=== PATIENT | female | born 1975 | race Caucasian/White ===

== ENCOUNTER → 2018-03-06 | Outpatient (CLI) | payer OTHER ==
[2018-03-06 08:01] LABS: BASOPHILS # (AUTO) 0.04 x10^3/uL (0-0.1); BASOPHILS % (AUTO) 1 % (0-1); EOSINOPHILS # (AUTO) 0.11 x10^3/uL (0-0.4); EOSINOPHILS % (AUTO) 2 % (1-7); LYMPHOCYTES # (AUTO) 1.24 x10^3/uL (1-3.4); LYMPHOCYTES % (AUTO) 23 % (22-44); MD NO; MEAN CORPUSCULAR HEMOGLOBIN 24.4 pg (27.0-34.8); MEAN CORPUSCULAR HGB CONC 31.9 g/dL (32.4-35.8); MEAN CORPUSCULAR VOLUME 76.3 fL (80-100); MEAN PLATELET VOLUME 9.8 fL (7.4-10.4); MONOCYTES # (AUTO) 0.39 x10^3/uL (0.2-0.8); MONOCYTES % (AUTO) 7 % (2-9); NEUTROPHILS # (AUTO) 3.53 x10^3/uL (1.8-6.8); NEUTROPHILS % (AUTO) 67 % (42-75); PLATELET COUNT 258 x10^3/uL (130-400); RED BLOOD COUNT 5.06 x10^6/uL (3.82-5.3); RED CELL DISTRIBUTION WIDTH 16.6 % (9.6-15.2)
[2018-03-06 08:11] LABS: ALBUMIN 3.5 g/dL (3.4-5.0); ANION GAP 5 mmol/L (5-15); CALCIUM 8.3 mg/dL (8.5-10.1); CHLORIDE 108 mmol/L (98-107)
[2018-03-06 08:24] LABS: ALANINE AMINOTRANSFERASE 25 U/L (12-78); ALKALINE PHOSPHATASE 78 U/L (45-117); BILIRUBIN,TOTAL 0.5 mg/dL (0.2-1.0); CHOLESTEROL, TOTAL 160 mg/dL (140-239); CREATININE 0.68 mg/dL (0.55-1.02); HDL CHOL % 34 % (28-40); HDL CHOLESTEROL (DIRECT) 54 mg/dL (40-60); LDL CHOLESTEROL,CALCULATED 87 mg/dL (54-169); LDL/HDL RATIO 1.6 (0.5-3.0); THYROID STIMULATING HORMONE 0.686 mIU/L (0.358-3.740); TOTAL PROTEIN 7.5 g/dL (6.4-8.2); TRIGLYCERIDES 96 mg/dL (50-200); VLDL CHOLESTEROL 19 mg/dL (0-25)
[2018-03-06 08:40] LABS: MICROSCOPIC INDICATED
== END | disposition home or self-care (01) ==
LOC: LAB 07:33
PROVIDERS: ATTEND Nurse Practitioner Family
DX: E03.9 Hypothyroidism, unspecified (principal); E66.01 Morbid (severe) obesity due to excess calories; F33.0 Major depressive disorder, recurrent, mild; G44.229 Chronic tension-type headache, not intractable; R41.3 Other amnesia; Z68.45 Body mass index [BMI] 70 or greater, adult; Z98.84 Bariatric surgery status
CPT/HCPCS: 36415; 80053; 80061; 81001; 84436; 84443; 84481; 85025

== ENCOUNTER → 2019-06-17 | Outpatient (CLI) | payer OTHER | END | disposition home or self-care (01) | LOC: CFH 14:16 | PROVIDERS: ATTEND Nurse Practitioner Family | DX: Z12.31 Encounter for screening mammogram for malignant neoplasm of breast (principal); N64.89 Other specified disorders of breast; M19.91 Primary osteoarthritis, unspecified site | CPT/HCPCS: 74176; 77063; 77067 ==

== ENCOUNTER 2019-09-03 08:14 | Outpatient (CLI) | payer OTHER ==
[~2019-09-03 08:14] MED LIST: LEVO150T5 PO; SUMA50TA3 PO; VENL75CA PO
[2019-09-03 08:57] LABS: INTERNATIONAL NORMALIZED RATIO 0.98 (0.93-1.1); PARTIAL THROMBOPLASTIN TIME 28 Seconds (25-31); PROTHROMBIN TIME 10.4 Seconds (9.6-11.5)
[2019-09-03 08:59] LABS: ALBUMIN 3.3 g/dL (3.4-5.0); ANION GAP 6 mmol/L (5-15); CALCIUM 8.7 mg/dL (8.5-10.1); CHLORIDE 111 mmol/L (98-107)
[2019-09-03 09:08] LABS: ALANINE AMINOTRANSFERASE 24 U/L (12-78); ALKALINE PHOSPHATASE 70 U/L (45-117); BILIRUBIN,TOTAL 0.3 mg/dL (0.2-1.0); CREATININE 0.69 mg/dL (0.55-1.02); FREE T4 (FREE THYROXINE) 1.22 ng/dL (0.76-1.46); T4 (THYROXINE) 11.2 mcg/dL (4.8-13.9); TOTAL PROTEIN 7.3 g/dL (6.4-8.2)
[2019-09-03 09:09] LABS: MEAN CORPUSCULAR HEMOGLOBIN 25.9 pg (27.0-34.8); MEAN CORPUSCULAR HGB CONC 32.2 g/dL (32.4-35.8); MEAN CORPUSCULAR VOLUME 80.4 fL (80-100); MEAN PLATELET VOLUME 9.9 fL (7.4-10.4); PLATELET COUNT 275 x10^3/uL (130-400); RED BLOOD COUNT 5.69 x10^6/uL (3.82-5.3); RED CELL DISTRIBUTION WIDTH 30.1 % (9.6-15.2)
[2019-09-03 09:53] LABS: PLATELET (PFA) 268 x10^3/uL (130-400)
[2019-09-03 10:12] LABS: ANISOCYTOSIS 1+; BASOPHILS # (AUTO) 0.06 x10^3/uL (0-0.1); BASOPHILS % (AUTO) 1 % (0-1); EOSINOPHILS # (AUTO) 0.16 x10^3/uL (0-0.4); EOSINOPHILS % (AUTO) 2 % (1-7); LYMPHOCYTES # (AUTO) 1.47 x10^3/uL (1-3.4); LYMPHOCYTES % (AUTO) 21 % (22-44); MD MORPH REVIEW ONLY; MICROCYTOSIS 2+; MONOCYTES % (AUTO) 9 % (2-9); NEUTROPHILS # (AUTO) 4.74 x10^3/uL (1.8-6.8); NEUTROPHILS % (AUTO) 67 % (42-75)
[2019-09-03 10:13] LABS: <PLATELET ESTIMATE> ADEQUATE; <PLT MORPHOLOGY> NORMAL PLT MORPH; OVALOCYTES 1+; TEAR DROPS 1+
== END 2019-09-03 23:59 | disposition home or self-care (01) ==
LOC: LAB 08:14
PROVIDERS: ATTEND Nurse Practitioner Family
DX: D50.0 Iron deficiency anemia secondary to blood loss (chronic) (principal); D64.9 Anemia, unspecified; E03.9 Hypothyroidism, unspecified
CPT/HCPCS: 36415; 80053; 82728; 84436; 84439; 84443; 84481; 85014; 85025; 85049; 85240; 85245; 85246; 85576; 85610; 85730

== ENCOUNTER → 2019-12-19 | Outpatient (CLI) | payer OTHER | END | disposition home or self-care (01) | LOC: CFH 14:03 | PROVIDERS: ATTEND Obstetrics & Gynecology | DX: N92.4 Excessive bleeding in the premenopausal period (principal) | CPT/HCPCS: 76856 ==

== ENCOUNTER → 2020-02-27 | Outpatient (CLI) | payer OTHER ==
[~2020-02-27] MED LIST changes: +ACET-2065 PO; +DEXAMETHASONE 4 MG/ML, 1ML ONE; +ERGO500017 PO; +FENTANYL PF 250 MCG/5ML ONE; +GLYCOPYRROLATE 0.2MG/1ML, 5ML ONE; +IBUP-1222 PO; +LEVO175T5 PO; +LIDOCAINE-MPF 2% ,5ML ONE; +METOCLOPRAMIDE 5 MG/ML, 2ML ONE; +MIDAZOLAM 1 MG/ML, 5ML ONE; +ONDA-89 PO; +ONDANSETRON 2MG/ML, 2ML ONE; +OXYC5CAP2 PO; +PHEN37.53 PO; +PROPOFOL 10 MG/ML, 20ML ONE; +ROCURONIUM 10MG/ML,5ML ONE
[2020-02-27 15:31] LABS: BASOPHILS # (AUTO) 0.04 x10^3/uL (0-0.1); BASOPHILS % (AUTO) 1 % (0-1); EOSINOPHILS # (AUTO) 0.19 x10^3/uL (0-0.4); EOSINOPHILS % (AUTO) 2 % (1-7); LYMPHOCYTES % (AUTO) 19 % (22-44); MD NO; MEAN CORPUSCULAR HEMOGLOBIN 25.9 pg (27.0-34.8); MEAN CORPUSCULAR HGB CONC 31.7 g/dL (32.4-35.8); MONOCYTES # (AUTO) 0.73 x10^3/uL (0.2-0.8); MONOCYTES % (AUTO) 9 % (2-9); NEUTROPHILS # (AUTO) 5.98 x10^3/uL (1.8-6.8); NEUTROPHILS % (AUTO) 70 % (42-75); PLATELET COUNT 250 x10^3/uL (130-400); RED BLOOD COUNT 5.46 x10^6/uL (3.82-5.3); RED CELL DISTRIBUTION WIDTH 17.3 % (9.6-15.2)
== END | disposition home or self-care (01) ==
LOC: STAR 14:09
PROVIDERS: ATTEND Obstetrics & Gynecology
DX: Z01.812 Encounter for preprocedural laboratory examination (principal); Z20.828 Contact with and (suspected) exposure to other viral communicable diseases; N92.0 Excessive and frequent menstruation with regular cycle
CPT/HCPCS: 36415; 84703; 85025; 87635

== ENCOUNTER 2020-03-02 10:25 | Observation (INO) | payer OTHER ==
[~2020-03-02] VITALS: Ht 170.2 cm; Wt 126.1 kg
[~2020-03-02 10:25] MED LIST changes: -ACET-2065 PO; -DEXAMETHASONE 4 MG/ML, 1ML ONE; -FENTANYL PF 250 MCG/5ML ONE; -GLYCOPYRROLATE 0.2MG/1ML, 5ML ONE; -IBUP-1222 PO; -LIDOCAINE-MPF 2% ,5ML ONE; -METOCLOPRAMIDE 5 MG/ML, 2ML ONE; -MIDAZOLAM 1 MG/ML, 5ML ONE; -ONDA-89 PO; -ONDANSETRON 2MG/ML, 2ML ONE; -OXYC5CAP2 PO; -PROPOFOL 10 MG/ML, 20ML ONE; -ROCURONIUM 10MG/ML,5ML ONE
[2020-03-02] MEDS ORDERED: LACTATED RINGERS 1,000 ML IV SCH (11:19)
[2020-03-02] MEDS ORDERED: CHLORHEXIDINE 15 ML UDC MM ONE (11:30)
[2020-03-02 11:41] LABS: HCG UR SG 1.022 (1.003-1.030)
[2020-03-02] MEDS ORDERED: SCOPOLAMINE 1MG PATCH TD STA (12:21)
[2020-03-02] MEDS ORDERED: SCOPOLAMINE 1MG PATCH TD ONE (12:26)
[2020-03-02] MEDS ORDERED: HYDROmorphone 1 MG/ML, 1ML INJ IVPush PRN (12:30)
[2020-03-02] MEDS ORDERED: LORazepam 2 MG/ML, 1ML IVPush PRN (12:30)
[2020-03-02] MEDS ORDERED: ALBUTEROL/IPRATROPIUM 2.5MG/0.5MG, 3 ML NPPB PRN (12:30)
[2020-03-02] MEDS ORDERED: DIPHENHYDRAMINE 50 MG/ML, 1ML IVPush PRN (12:30)
[2020-03-02] MEDS ORDERED: HALOPERIDOL 5 MG/ML IV PRN (12:30)
[2020-03-02] MEDS ORDERED: MEPERIDINE/PF 25MG/0.5ML IVPush PRN (12:30)
[2020-03-02] MEDS ORDERED: LABETALOL 5MG/ML, 20ML IV PRN (12:30)
[2020-03-02] MEDS ORDERED: METHOCARBAMOL 1,000 MG in DEXTROSE 5% 100 ML IV PRN (12:30)
[2020-03-02] MEDS ORDERED: MIDAZOLAM 1 MG/ML, 2ML IV PRN (12:30)
[2020-03-02] MEDS ORDERED: METOCLOPRAMIDE 5 MG/ML, 2ML IVPush PRN (12:30)
[2020-03-02] MEDS ORDERED: hydrALAzine 20 MG/ML, 1ML IV PRN (12:30)
[2020-03-02] MEDS ORDERED: ONDANSETRON 2MG/ML, 2ML IVPush PRN (12:30)
[2020-03-02] MEDS ORDERED: EPHEDRINE 50 MG/ML, 1ML IM PRN (12:30)
[2020-03-02] MEDS ORDERED: OXYcodone 5 MG/5 ML ORAL.SOL UDC PO PRN (12:30)
[2020-03-02] MEDS ORDERED: KETOROLAC 30 MG/1 ML IVPush PRN (12:30)
[2020-03-02] MEDS ORDERED: ACETAMINOPHEN 325 MG TABLET PO PRN (12:30)
[2020-03-02] MEDS ORDERED: EPHEDRINE 50 MG/ML, 1ML IVPush PRN (12:30)
[2020-03-02] MEDS ORDERED: HYDROcodone/APAP 7.5-325MG/15ML UDC PO PRN (12:30)
[2020-03-02] MEDS ORDERED: DIAZEPAM 5 MG/ML, 2ML IVPush PRN (12:30)
[2020-03-02] MEDS ORDERED: BUPIVACAINE/PF 0.25% ONE ×2 (12:53→14:22)
[2020-03-02] MEDS ORDERED: VASOPRESSIN 20 UNIT/ML, 1ML ONE (12:53)
[2020-03-02] MEDS ORDERED: GLYCOPYRROLATE 0.2MG/1ML, 5ML ONE (13:34)
[2020-03-02] MEDS ORDERED: METOCLOPRAMIDE 5 MG/ML, 2ML ONE (13:34)
[2020-03-02] MEDS ORDERED: MIDAZOLAM 1 MG/ML, 2ML ONE (13:34)
[2020-03-02] MEDS ORDERED: PROPOFOL 10 MG/ML, 20ML ONE (13:34)
[2020-03-02] MEDS ORDERED: ONDANSETRON 2MG/ML, 2ML ONE (13:34)
[2020-03-02] MEDS ORDERED: FENTANYL PF 250 MCG/5ML ONE (13:34)
[2020-03-02] MEDS ORDERED: LIDOCAINE-MPF 2% ,5ML ONE (13:34)
[2020-03-02] MEDS ORDERED: DEXAMETHASONE 4 MG/ML, 1ML ONE (13:34)
[2020-03-02] MEDS ORDERED: ROCURONIUM 10 MG/ML,10ML ONE (13:34)
[2020-03-02] MEDS ORDERED: CEFAZOLIN 1,000 MG ONE (13:34)
[2020-03-02] MEDS ORDERED: FLUORESCEIN SODIUM 500 MG/5 ML ONE (15:24)
[2020-03-02] MEDS ORDERED: KETOROLAC 30 MG/1 ML ONE (16:37)
[2020-03-02] MEDS ORDERED: FENTANYL PF 100 MCG/2ML ONE (17:12)
[2020-03-02] MEDS ORDERED: OXYcodone 5 MG/5 ML ORAL.SOL UDC ONE (17:12)
[2020-03-02] MEDS: FENTANYL PF 100 MCG/2ML IV PRN ×2 (17:13→17:18)
[2020-03-02] MEDS ORDERED: HYDROmorphone 1 MG/ML, 1ML INJ ONE (17:16)
[2020-03-02] MEDS ORDERED: morphine SULFATE 10 MG/ML, 1ML IV PRN (18:30)
[2020-03-02] MEDS ORDERED: ONDANSETRON 2MG/ML, 2ML IV PRN (18:30)
[2020-03-02] MEDS: LACTATED RINGERS 1,000 ML IV SCH (19:30)
[2020-03-02] MEDS: OXYcodone 5 MG/5 ML ORAL.SOL UDC PO PRN (20:27)
[2020-03-02] MEDS ORDERED: SUMATRIPTAN 50 MG TABLET PO PRN (21:30)
[2020-03-02 22:22] VITALS: BP 117/76
[2020-03-02] MEDS: SODIUM CHLORIDE FLUSH 10ML SYR IVF SCH (22:24)
[2020-03-02] MEDS: IBUPROFEN 600 MG TABLET PO SCH (22:24)
[2020-03-03] MEDS: ACETAMINOPHEN 500 MG TABLET PO SCH ×2 (00:13→06:22)
[2020-03-03 00:18] VITALS: BP 129/84
[2020-03-03] MEDS: OXYcodone 5 MG/5 ML ORAL.SOL UDC PO PRN ×3 (00:35→08:26)
[2020-03-03] MEDS: IBUPROFEN 600 MG TABLET PO SCH (04:40)
[2020-03-03 04:42] VITALS: BP 125/85
[2020-03-03] MEDS: LACTATED RINGERS 1,000 ML IV SCH (04:46)
[2020-03-03] MEDS ORDERED: LEVOTHYROXINE 175 MCG TABLET PO SCH (06:00)
[2020-03-03 07:49] VITALS: BP 121/81
[2020-03-03] MEDS: SODIUM CHLORIDE FLUSH 10ML SYR IVF SCH (08:40)
[2020-03-03] MEDS ORDERED: ACET-2065 PO (08:50)
[2020-03-03] MEDS ORDERED: IBUP-1222 PO (08:52)
[2020-03-03] MEDS ORDERED: OXYC5CAP2 PO (08:53)
[2020-03-03] MEDS ORDERED: ONDA-89 PO (08:54)
[2020-03-03] MEDS ORDERED: VENLAFAXINE 75 MG CAP ER PO SCH (09:00)
== END 2020-03-03 09:45 | disposition home or self-care (01) ==
LOC: OUT 10:25 → 4NE 17:51 → OUT 21:09 → 4NE 21:09 → DCLOUNGE 03-03 09:24
PROVIDERS: ADMIT Obstetrics & Gynecology; ATTEND Obstetrics & Gynecology
DX: N92.4 Excessive bleeding in the premenopausal period (principal); D50.0 Iron deficiency anemia secondary to blood loss (chronic); E66.01 Morbid (severe) obesity due to excess calories; F32.9 Major depressive disorder, single episode, unspecified; R11.0 Nausea; G89.18 Other acute postprocedural pain; Z79.899 Other long term (current) drug therapy; Z86.2 Personal history of diseases of the blood and blood-forming organs and certain disorders involving the immune mechanism; Z98.890 Other specified postprocedural states
CPT/HCPCS: 52000; 57425; 58575; 81025; 88307; G0378; J0690; J1100; J1170; J1885; J2250; J2405; J2704; J2765; J2800; J3010; J3490

== ENCOUNTER 2020-08-14 05:59 | Emergency (ER) | payer OTHER ==
[~2020-08-14] VITALS: Ht 170.2 cm; Wt 124.0 kg
[~2020-08-14 05:59] MED LIST changes: +ACET-2065 PO; +IBUP-1222 PO; +ONDA-89 PO; +OXYC5CAP2 PO
[2020-08-14 06:07] VITALS: BP 167/101
--- NOTE | 2020-08-14 06:15 | NUR ---
PT TO ER WITH C/O OF HAVING A CHIPPED TOOTH FOR UNKNOWN AMOUNT OF TIME, BUT STARTED HAVING WORSEING PAIN AND FACIAL SWELLING X 1 DAY. PT WITH NO DIFFICULTY BREATHING OR SWALLOWING, DENIES FEVERS.
[2020-08-14] MEDS ORDERED: BUPIVACAINE 0.25% ONE (06:20)
[2020-08-14] MEDS ORDERED: BUPIVACAINE/PF 0.25% INFIL ONE (06:30)
--- NOTE | 2020-08-14 06:45 | NUR ---
Patient given discharge instructions and they have confirmed that they understand the instructions. Patient ambulatory with steady gait.
[2020-08-14] MEDS ORDERED: BUPIVACAINE 0.25% INFIL ONE (07:00)
== END 2020-08-14 06:47 | disposition home or self-care (01) ==
LOC: ED 06:46
DX: K04.7 Periapical abscess without sinus (principal); R22.0 Localized swelling, mass and lump, head
CPT/HCPCS: 64400; 99284

== ENCOUNTER 2020-08-14 17:56 | Emergency (ER) | payer OTHER ==
[~2020-08-14] VITALS: Ht 170.2 cm; Wt 123.6 kg
[2020-08-14 17:59] VITALS: BP 165/116
--- NOTE | 2020-08-14 18:13 | NUR ---
patient arrives to er with dental pain in upper right molar that began yesterday morning. patient has some facial swelling from swollen gum. patient came this morning and was prescribed cipro and clinda and 800 ibuprofen, she took all of them but symtpoms getting worse
--- NOTE | 2020-08-14 18:25 | NUR ---
listened to MD review with patient details about continuing abx, and adding pain control medications. reviewed these with her including no driving, no alcohol. MD reviewed to come to ER if swelling got worse. patient shows understanding.
== END 2020-08-14 18:36 | disposition home or self-care (01) ==
LOC: ED 18:30
DX: K08.89 Other specified disorders of teeth and supporting structures (principal); R51.9 Headache, unspecified; Z90.710 Acquired absence of both cervix and uterus
CPT/HCPCS: 99283

== ENCOUNTER → 2020-11-12 | Outpatient (CLI) | payer OTHER ==
[2020-11-12 08:20] LABS: MEAN CORPUSCULAR HEMOGLOBIN 29.4 pg (27.0-34.8); MEAN CORPUSCULAR HGB CONC 33.9 g/dL (32.4-35.8); MEAN PLATELET VOLUME 9.3 fL (7.4-10.4); PLATELET COUNT 212 x10^3/uL (130-400); RED BLOOD COUNT 5.41 x10^6/uL (3.82-5.3); RED CELL DISTRIBUTION WIDTH 12.6 % (9.6-15.2)
[2020-11-12 08:30] LABS: ALBUMIN 3.6 g/dL (3.4-5.0); ANION GAP 5 mmol/L (5-15); CALCIUM 8.6 mg/dL (8.5-10.1); CHLORIDE 109 mmol/L (98-107)
[2020-11-12 08:59] LABS: % IRON SATURATION 44 % (20-55); ALANINE AMINOTRANSFERASE 26 U/L (12-78); ALKALINE PHOSPHATASE 85 U/L (45-117); BILIRUBIN,TOTAL 0.6 mg/dL (0.2-1.0); CHOL/HDL RATIO 3.1; CHOLESTEROL, TOTAL 168 mg/dL (140-239); CREATININE 0.52 mg/dL (0.55-1.02); HDL CHOL % 33 % (28-40); HDL CHOLESTEROL (DIRECT) 55 mg/dL (40-60); IRON LEVEL 119 mcg/dL (50-170); LDL CHOLESTEROL,CALCULATED 90 mg/dL (54-169); LDL/HDL RATIO 1.6 (0.5-3.0); PREALBUMIN 18.6 mg/dL (20.0-40.0); TOTAL IRON BINDING CAPACITY 273 mcg/dL (250-450); TOTAL PROTEIN 7.3 g/dL (6.4-8.2); TRIGLYCERIDES 116 mg/dL (50-200); VLDL CHOLESTEROL 23 mg/dL (0-25)
[2020-11-12 09:01] LABS: FOLATE LEVEL > 20.0 ng/mL (3.1-17.5)
[2020-11-12 09:14] LABS: FREE T4 (FREE THYROXINE) 1.46 ng/dL (0.76-1.46)
== END | disposition home or self-care (01) ==
LOC: LAB 08:02
PROVIDERS: ATTEND Nurse Practitioner Family
DX: Z00.01 Encounter for general adult medical examination with abnormal findings (principal); R03.0 Elevated blood-pressure reading, without diagnosis of hypertension; G43.919 Migraine, unspecified, intractable, without status migrainosus; E03.8 Other specified hypothyroidism; R53.83 Other fatigue; R19.7 Diarrhea, unspecified; L98.9 Disorder of the skin and subcutaneous tissue, unspecified; F32.9 Major depressive disorder, single episode, unspecified; Z68.41 Body mass index [BMI] 40.0-44.9, adult
CPT/HCPCS: 36415; 80053; 80061; 82306; 82607; 82728; 82746; 83540; 83550; 84134; 84439; 84443; 84481; 85027

== ENCOUNTER 2021-01-06 12:32 | Emergency (ER) | payer OTHER ==
[~2021-01-06] VITALS: Ht 170.2 cm; Wt 125.6 kg
[2021-01-06 13:11] VITALS: BP 157/97
== END 2021-01-06 13:38 | disposition home or self-care (01) ==
LOC: ED 13:30
DX: R09.81 Nasal congestion (principal); Z20.822 Contact with and (suspected) exposure to COVID-19; R51.9 Headache, unspecified
CPT/HCPCS: 99283; U0003; U0005

== ENCOUNTER 2021-02-01 14:28 | Outpatient (CLI) | payer OTHER | END 2021-02-01 23:59 | disposition home or self-care (01) | LOC: LAB 14:28 | PROVIDERS: ATTEND Nurse Practitioner Family | DX: E03.9 Hypothyroidism, unspecified (principal) | CPT/HCPCS: 36415; 84443 ==